=== PATIENT | female | born 1965 | race Caucasian/White ===

== ENCOUNTER → 2017-08-17 05:15 | Day surgery (SDC) | payer OTHER ==
[2017-08-16 14:42] LABS: BASOPHILS 0.2 % (0-2); HEMATOCRIT 41.8 % (36.0-48.0); HEMATOCRIT 42.4 % (36.0-48.0); HEMOGLOBIN 14.1 g/dL (12-16); IMMATURE GRANULOCYTES 0.3 % (0-5); LYMPHOCYTES 28.8 % (15-50); MCH 31.3 pg (26.0-34.0); MCH 31.8 pg (26.0-34.0); MCHC 33.3 g/dL (31.0-37.0); MCHC 33.7 g/dL (31.0-37.0); MCV 94.1 fL (80.0-100.0); MEAN PLATELET VOLUME 10.1 fL (7.4-10.4); MONOCYTES 11.4 % (2-11); NEUTROPHILS 57.3 % (40-80); PLATELET COUNT 231 10x3/uL (130-400); RBC 4.44 10x6/uL (4.00-5.40); RBC 4.51 10x6/uL (4.00-5.40); RDW 13.4 % (11.5-14.5); WBC 5.9 10x3/uL (4.8-10.8)
[2017-08-16 14:56] LABS: CALC OSMOLALITY 279 mosm/kg (275-300); CALCIUM 8.6 mg/dL (8.5-10.1); CARBON DIOXIDE 27.8 mmol/L (21.0-32.0); CHLORIDE - SERUM 103 mmol/L (98-107); CREATININE - SERUM 0.8 mg/dL (0.6-1.3); GLUCOSE 99 mg/dL (74-106); POTASSIUM - SERUM 3.8 mmol/L (3.5-5.1); SODIUM 141 mmol/L (136-145); UREA NITROGEN 11 mg/dL (7-18); eGFR NON AFRICAN AMERICAN 79 mL/min (90-120)
[~2017-08-17] VITALS: Ht 165.1 cm; Wt 102.5 kg
--- NOTE | ~2017-08-17 | OP ---
PATIENT NAME: GISSEL MELO MEDICAL RECORD: [id number] :61 LOCATION:D.OPS ADMISSION DATE: SURGEON: ARNOLD BLANCHARD MD DATE OF OPERATION: 08/17/2017 PREOPERATIVE DIAGNOSES: 1. Chronic appendicitis. 2. Morbid obesity. 3. Arthritis. 4. Thyroid disease. POSTOPERATIVE DIAGNOSES: 1. Chronic appendicitis. 2. Morbid obesity. 3. Arthritis. 4. Thyroid disease. PROCEDURE: Laparoscopic appendectomy. SURGEON: Arnold Blanchard MD REPORT OF PROCEDURE: The patient's abdomen was prepped and draped in sterile fashion. A skin incision was made on the superior aspect of the umbilicus, 0 Vicryls were placed in the fascia bilaterally and the fascia was incised with a 15-blade. I then bluntly entered the peritoneal cavity and placed a 12-mm Mitch port. Under direct visualization, a 5-mm trocar was placed in the left lower quadrant and another was placed in the suprapubic region. Upon median examination, there is a large cyst in the patient's right kidney. There was no sign of any intra-abdominal fluid. There were no inflammatory changes noted. As we looked up to the cecum, the patient had a very floppy right colon. We were eventually able to unfold the colon and find the terminal ileum and cecum. The appendix was visualized and had some chronic inflammation to the fatty tissue around it. There was no sign of any acute process that was going on at this time. We found the base of the appendix and made a window between the base of the appendix and the mesoappendix. The appendix was transected at the cecum using a 55 blue load Endo-ARIANNA stapler. The mesoappendix was then transected with a 55 white load Endo-ARIANNA stapler. We placed the appendix into an EndoCatch bag. We irrigated out the abdomen and assured there was no sign of any bleeding. Once the appendix was removed, we inspected carefully and then saw that the staple line had actually gone through loop of the appendix, so we went back into the abdominal cavity and I was able to find a suitable section of the appendix, which was left behind. This was dissected free from the surrounding fatty tissue. This was brought out and sent off with the specimen. We inspected for any bleeding and any that was found was treated with electrocautery. We then irrigated out the abdomen. There was no sign of any bowel injuries. At this point, the ports and insufflation were then removed. The umbilical fascia was closed with interrupted 0 Vicryls times 3. We irrigated out the wounds with normal saline and infused them with 10 mL of 0.25% Marcaine with epinephrine. The skin incisions were then closed with subcutaneous 5-0 Monocryl and dressed appropriately. COMPLICATIONS: None. CONDITION: Stable. OPERATIVE REPORT [id number] GISSEL MELO ANESTHESIA: General endotracheal and local. BLOOD LOSS: 30 mL. TRANSINT:[id number] Voice Confirmation ID: [id number] DOCUMENT ID: [id number] ARNOLD BLANCHARD MD at 1123 CC: HOLLIS WHATLEY MD [id number] DICTATION DATE: 08/17/17924 MANAGER TITLE: 08/17/17 1415 [facility] 08/17/17 [id number] [place] [address]
[~2017-08-17 05:15] MED LIST: HYDROCODONE-APA1 TAB PO; PHENERGAN25 M1 PO; TAMIFLU75 MG PO; TIROSINT25 MCG PO
[2017-08-17 06:32] VITALS: BP 116/63; Ht 165.1 cm; Wt 102.5 kg
== END | disposition home or self-care (01) ==
LOC: D.OPS 05:15 → D.PAN 12:00
PROVIDERS: Anesthesiology; Surgery
DX: K36 Other appendicitis (principal); E03.9 Hypothyroidism, unspecified; G47.30 Sleep apnea, unspecified; E66.01 Morbid (severe) obesity due to excess calories; M19.90 Unspecified osteoarthritis, unspecified site; Z68.37 Body mass index [BMI] 37.0-37.9, adult; Z01.812 Encounter for preprocedural laboratory examination

== ENCOUNTER → 2017-11-12 12:15 | Outpatient (CLI) | payer OTHER ==
[2017-08-17 06:32] VITALS: BMI 37.6
== END | disposition home or self-care (01) ==
LOC: D.US 12:15
DX: N83.202 Unspecified ovarian cyst, left side (principal)